=== PATIENT | female | born 1970 | race Two or more races ===

== ENCOUNTER 2024-03-18 22:09 | Emergency (ER) | payer MEDICAID, OTHER ==
[~2024-03-18] VITALS: Ht 167.6 cm; Wt 83.2 kg
[2024-03-18] MEDS ORDERED: FOLIC ACID 1 MG, MAGNESIUM SULF SDV 50% 8 MEQ, MULTIPLE VITAMIN 10 ML, THIAMINE INJ 100... INJ STA (22:14)
[2024-03-18 22:40] VITALS: BP 129/80; PULSE 90; RESP 16; O2SAT 96
[2024-03-18 22:54] LABS: Basophils # (auto) 0 10 ^3/uL (0-0.2); Basophils % (auto) 0.4 % (0.0-2.0); Eosinophils # (auto) 0.2 10 ^3/uL (0-0.8); Eosinophils % (auto) 2.1 % (0.0-7.0); Hematocrit 36.4 % (36.0-46.0); Hemoglobin 12.5 g/dL (12.2-16.2); Lymphocytes # (auto) 3.5 10 ^3/uL (0.4-5.4); Lymphocytes % (auto) 35.1 % (10.0-50.0); Mean Corpuscular Hemoglobin 30.7 pg (28.0-32.0); Mean Corpuscular Hgb Conc. 34.3 g/dL (32.0-36.0); Mean Corpuscular Volume 89.2 fL (80.0-100.0); Monocytes # (auto) 0.6 10 ^3/uL (0-1.3); Neutrophils # (auto) 5.6 10 ^3/uL (1.6-8.6); Neutrophils % (auto) 56.4 % (37.0-80.0); Platelet Count (auto) 332 10^3/uL (140-450); Red Blood Cells 4.08 10^6/uL (4.0-5.20); Red Cell Distribution Width 13.5 % (11.8-14.3); White Blood Cell 9.9 10^3/uL (4.4-10.8)
[2024-03-18 23:21] LABS: CRP High Sensitivity 0.32 mg/dL (<1.0)
[2024-03-19 00:16] LABS: Alanine Aminotransferase 21 U/L (7-40); Albumin 4.7 g/dL (3.2-4.8); Alkaline Phosphatase 61 U/L (46-116); Anion Gap 8 (5-15); BUN/Creatinine Ratio 13.5 (10.0-20.0); Blood Urea Nitrogen 12 mg/dL (9-23); Calcium 9.7 mg/dL (8.7-10.4); Carbon Dioxide 24 mmol/L (20-31); Chloride 106 mmol/L (98-107); Potassium 3.7 mmol/L (3.5-5.1); Sodium 138 mmol/L (136-145)
[2024-03-19 00:17] LABS: Bilirubin, Total 0.6 mg/dL (0.2-1.0); Total Protein 7.4 g/dL (5.7-8.2)
--- NOTE | 2024-03-19 00:22 | DVH ---
CHEST RADIOGRAPH Indication: Rule out pulmonary edema Technique: Single frontal view of the chest was obtained COMPARISON: None FINDINGS: Lines and Tubes: None Lungs: Clear Pleura: No effusion. No pneumothorax. Cardiomediastinal contours: Unremarkable Bones: Unremarkable IMPRESSION: 1. No acute disease.
--- NOTE | 2024-03-19 00:22 | ED.PDOC ---
Musculoskeletal HPI Comments 53 year old female came to emergency room due to lower extremity swelling. Patient does have history of hypertension and diabetes. States for the past few hours she has been having bilateral lower extremity swelling. Patient admits that she has been on a long drive to [place] for over 4 hours 2 days ago. Denies any fever, acute chest pains or shortness of breath. Blood pressure upon arrival was 129/80 mmHg Chief Complaint: Lower Extremity Time Seen by MD: 00:20 Reviewed Notes: Nurses Notes Home Meds Active Scripts Elastic Bandages & Supports (MEDICAL COMPRESSION STOCK) Stocking Mis, UNITS XX ONCE, #2 Prov:SOLOMON BARCENAS MD 03/19/24 Information Source: Patient Mode of Arrival: Ambulatory Location: Bilateral Extremity Location: Leg Timing: Hours Prehospital treatment: None Severity: Moderate Able to Move Extremity: Yes Bear Weight: Limited Pain: Moderate Hand Dominance: Right Mechanism: Spontaneous Circumstances: Spontaneous, Other (Recent travel) Onset of Symptoms: Spontaneous Symptoms: Swelling, Pain Associated signs and symptoms: Leg pain Review of Systems REVIEW OF SYSTEMS: No fever, no chills, or fatigue HEENT: No sore throat, no earache, no congestion, no neck pain. Cardiac: No chest pain. No palpitations. Lungs: No shortness of breath, no cough. GI: No nausea, no vomiting, no diarrhea, no constipation, no abdominal pain : No dysuria, frequency, or urgency. No hematuria. Musculoskeletal: No joint pain , no joint swelling, (+) lower extremity edema. Skin: No rash, no itching. Neuro: No headache, no dizziness, no weakness Vital Signs Vital Signs Date Time Temp Pulse Resp B/P (MAP) Pulse Ox O2 Delivery O2 Flow Rate FiO2 03/18/24 22:40 98.2 90 16 129/80 (96) 96 Physical Exam General: Awake, alert and oriented. No acute distress. Skin: Skin in warm, dry and intact. Appropriate color for ethnicity. Nailbeds pink with no cyanosis. HEENT: The head is normocephalic and atraumatic. Conjunctivae are clear without exudates or hemorrhage. Sclera is non-icteric. EOM are intact. No signs of nystagmus. Eyelids are normal in appearance without swelling or lesions. Oral mucosa is pink and moist Neck: The neck is supple with normal range of motion. No JVD. Cardiac: Heart rate and rhythm are normal. No murmurs, gallops, or rubs are auscultated. Respiratory: No signs of respiratory distress. Lung sounds are clear in all lobes bilaterally without rales, ronchi, or wheezes. Abdominal: Abdomen is soft, non-tender without distention. Bowel sounds are present and normoactive in all four quadrants. Extremities: Bilateral lower extremity 2+ pitting edema Neurological: The patient is awake, alert and oriented to person, place, and time with normal speech. Speech is clear. There is no facial asymmetry. Psychiatric: Appropriate mood and affect. Good judgement and insight. No visual or auditory hallucinations. 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 Was a procedure done?: No Differential Diagnosis EXT Differential Diagnosis: Cellulitis, CHF, Deep Vein Thrombosis, Compartment Syndrome X-Ray, Labs, Meds, VS Vital Signs Date Time Temp Pulse Resp B/P (MAP) Pulse Ox O2 Delivery O2 Flow Rate FiO2 03/18/24 22:40 98.2 90 16 129/80 (96) 96 Lab Test 03/18/24 22:46 Range/Units White Blood Count 9.9 4.4-10.8 10^3/uL Red Blood Count 4.08 4.0-5.20 10^6/uL Hemoglobin 12.5 12.2-16.2 g/dL Hematocrit 36.4 36.0-46.0 % Mean Corpuscular Volume 89.2 80.0-100.0 fL Mean Corpuscular Hemoglobin 30.7 28.0-32.0 pg Mean Corpuscular Hemoglobin Concent 34.3 32.0-36.0 g/dL Red Cell Distribution Width 13.5 11.8-14.3 % Platelet Count 332 140-450 10^3/uL Mean Platelet Volume 7.4 6.9-10.8 fL Neutrophils (%) (Auto) 56.4 37.0-80.0 % Lymphocytes (%) (Auto) 35.1 10.0-50.0 % Monocytes (%) (Auto) 6.0 0.0-12.0 % Eosinophils (%) (Auto) 2.1 0.0-7.0 % Basophils (%) (Auto) 0.4 0.0-2.0 % Neutrophils # (Auto) 5.6 1.6-8.6 10 ^3/uL Lymphocytes # (Auto) 3.5 0.4-5.4 10 ^3/uL Monocytes # (Auto) 0.6 0-1.3 10 ^3/uL Eosinophils # (Auto) 0.2 0-0.8 10 ^3/uL Basophils # (Auto) 0 0-0.2 10 ^3/uL Nucleated Red Blood Cells 0.0 % Sodium Level 138 136-145 mmol/L Potassium Level 3.7 3.5-5.1 mmol/L Chloride Level 106 98-107 mmol/L Carbon Dioxide Level 24 20-31 mmol/L Anion Gap 8 5-15 Blood Urea Nitrogen 12 9-23 mg/dL Creatinine 0.89 0.550-1.02 mg/dL Glomerular Filtration Rate Calc 78 >90 mL/min BUN/Creatinine Ratio 13.5 10.0-20.0 Serum Glucose 128 H 74-106 mg/dL Calcium Level 9.7 8.7-10.4 mg/dL Magnesium Level 2.0 1.6-2.6 mg/dL Total Bilirubin 0.6 0.2-1.0 mg/dL Aspartate Amino Transferase (AST) 11 L 13-40 U/L Alanine Aminotransferase (ALT) 21 7-40 U/L Alkaline Phosphatase 61 46-116 U/L Troponin I High Sensitivity 3 L </=34 ng/L C-Reactive Protein High Sensitivity 0.32 <1.0 mg/dL B-Type Natriuretic Peptide 16.00 0-100 pg/mL Total Protein 7.4 5.7-8.2 g/dL Albumin 4.7 3.2-4.8 g/dL Lipase 41 12-53 U/L Bilateral lower extremity venous duplex Clinical History: No extremity edema Comparison: None Technique: Duplex Doppler evaluation of the deep venous systems of both lower extremities from the common femoral veins to the popliteal veins including color Doppler and spectral/pulsed waveform analysis was performed. Findings: RIGHT SIDE: The common femoral vein demonstrates appropriate compressibility and waveform variability. There is compressibility/patency of the great saphenous vein at the proximal thigh. The femoral vein demonstrates appropriate compressibility and waveform variability. The deep femoral vein demonstrates appropriate compressibility and waveform variability. The popliteal vein demonstrates appropriate compressibility and waveform variability. There is normal compressibility at the tibioperoneal trunk. LEFT SIDE: The common femoral vein demonstrates appropriate compressibility and waveform variability. There is compressibility/patency of the great saphenous vein at the proximal thigh. The femoral vein demonstrates appropriate compressibility and waveform variability. The deep femoral vein demonstrates appropriate compressibility and waveform variability. The popliteal vein demonstrates appropriate compressibility and waveform variability. There is normal compressibility at the tibioperoneal trunk. Impression: 1. No right or left femoropopliteal venous thrombosis. Time of 1ST Reevaluation: 00:15 Reevaluation 1ST: Unchanged Patient Education/Counseling: Diagnosis, Treatment Family Education/Counseling: Diagnosis, Treatment Departure 1 Departure Time of Disposition: 01:01 Impression: Primary Impression: Peripheral edema Disposition: 01 HOME / SELF CARE / HOMELESS Condition: Stable Additional Instructions: ED DISCHARGE INSTRUCTIONS Instructions: Please read all instructions provided in this packet carefully. Although you have been discharged from the Emergency Department, this does not mean that you have a "clean bill of health". No definitive diagnosis for your symptoms has been made today. It is possible that you are in the process of developing a serious illness. This is why you must return to the ED without fail if any new or worsening symptoms (especially if your symptoms include chest pain, trouble breathing, abdominal pain, fever, headache, confusion, trouble seeing, or trouble walking) It is also very important that you see a primary care doctor within the next 3-5 days to follow up. If you are unable to get an appointment, return to the ED for re-evaluation. PERIPHERAL EDEMA EDUCATION Edema is the medical term for swelling caused by a collection of fluid in the spaces that surround the body's tissues and organs. Edema can occur nearly anywhere in the body. Some of the most common sites are: ?The lower legs or hands (also called peripheral edema) ?Abdomen (also called ascites) ?Chest (called pulmonary edema if in the lungs, and pleural effusion if in the space surrounding the lungs) Ascites and peripheral edema can be uncomfortable and can be a sign of a more serious condition. Pulmonary edema, which makes it difficult to breathe and can be life threatening, is a symptom of heart failure and is discussed in more detail separately. (See "Patient education: Heart failure (Beyond the Basics)".) EDEMA SYMPTOMS Symptoms of edema depend upon the cause but may include: ?Swelling or puffiness of the skin, causing it to appear stretched and shiny. This typically is worse in the areas of the body that are closest to the ground (because of gravity). Therefore, edema is generally the worst in the lower legs (called peripheral edema) after walking about, standing, sitting in a chair for a period of time, or at the end of the day. It accumulates in the lower back (called sacral edema) after being in bed for several hours. Pushing on the swollen area for a few seconds will leave a temporary dimple or dent in the skin (figure 1). ?Increased size of the abdomen (with ascites). ?Difficulty breathing (with edema in the chest). CONDITIONS ASSOCIATED WITH EDEMA A number of different problems can cause edema. Chronic venous disease A common cause of edema in the lower legs is chronic venous disease, a condition in which the veins in the legs cannot pump enough blood back up to the heart because the valves in the veins are damaged. This can lead to fluid collecting in the lower legs, thinning of the skin, and, in some cases, development of skin sores (ulcers). (See "Patient education: Lower extremity chronic venous disease (Beyond the Basics)".) Edema can also develop as a result of a blood clot in the deep veins of the lower leg (called deep vein thrombosis [DVT]). In this case, the edema is mostly limited to the feet or ankles and usually affects only one side (the left or right); other conditions that cause edema usually cause swelling of both legs. (See "Patient education: Deep vein thrombosis (DVT) (Beyond the Basics)".) women retain extra fluid. Swelling commonly develops in the hands, feet, and face, especially near the end of a normal . Swelling without other symptoms and findings is common and is not usually a sign that a complication, such as preeclampsia (sometimes called toxemia), has developed. (See "Patient education: Preeclampsia (Beyond the Basics)".) Monthly menstrual periods Edema in women that occurs in a cyclic pattern (usually once per month) can be the result of hormonal changes related to the menstrual cycle. This type of edema is common but does not require treatment, because it resolves on its own. Drugs Edema can be a side effect of a variety of medications, including some oral diabetes medications, high blood pressure medications, non-prescription pain relievers (such as ibuprofen), and estrogens. Kidney disease The edema of kidney disease can cause swelling in the lower legs and around the eyes. (See "Patient education: Chronic kidney disease (Beyond the Basics)".) Heart failure Heart failure, also called congestive heart failure, is due to a weakened heart, which impairs its pumping action. Heart failure can cause swelling in the legs and abdomen, as well as other symptoms. Heart failure can also cause fluid to accumulate in the lungs (pulmonary edema), causing shortness of breath. This can be a very dangerous condition requiring emergency treatment. (See "Patient education: Heart failure (Beyond the Basics)".) Cirrhosis Cirrhosis is scarring of the liver from various causes, which can obstruct blood flow through the liver. People with cirrhosis can develop pronounced swelling in the abdomen (ascites) or in the lower legs (peripheral edema). (See "Patient education: Cirrhosis (Beyond the Basics)".) Travel Sitting for prolonged periods, such as during air travel, can cause swelling in the lower legs. This is common and is not usually a sign of a problem. The table provides tips to minimize leg swelling during travel (table 1). If your leg(s) remain swollen or you develop leg pain hours or days after the flight, contact your healthcare provider. Continued swelling and pain can be signs of a blood clot (DVT). (See "Patient education: Deep vein thrombosis (DVT) (Beyond the Basics)".) Angioedema Reactions to some medications and some inherited disorders can cause fluid to leak out of the blood vessels into surrounding tissues (angioedema). This can cause rapid swelling in the face, lips, tongue, mouth, throat, voice box, limbs, or genitals. Symptoms may include hoarse voice, throat tightness, and difficulty swallowing. Swelling of the throat can interfere with breathing and may be life threatening. Sometimes, this type of swelling occurs in the bowel (the intestinal wall) and can result in abdominal pain. Lymphedema Surgical removal of lymph nodes for the treatment of cancer (most commonly breast cancer) can cause swelling of a limb or limbs with thickening of the skin on the side of the surgery. Swelling of both legs because of lymph problems can also be an inherited condition that becomes apparent in childhood or young adulthood. Lymphedema can also be caused by infection, trauma, or obesity. DIAGNOSING THE CAUSE OF EDEMA If you develop new swelling in one or both of your legs, hands, in your abdomen, or around your eyes, you should call your healthcare provider to determine if you need to be evaluated. (See "Clinical manifestations and evaluation of edema in adults".) If you develop a sudden onset of swelling in the lips, tongue, or mouth, especially if it affects your ability to talk or breathe, you should go to an em ergency department immediately. EDEMA TREATMENT Treatment of edema includes several components: treatment of the underlying ca use (if possible), reducing the amount of salt (sodium) in your diet, and, in many cases, use of a medication called a diuretic to eliminate excess fluid. Using compression stockings and elevating the legs may also be recommended. (See "General principles of the treatment of edema in adults".) Not all types of edema require treatment. Edema related to or menstrual cycles is not usually treated. Peripheral edema and ascites are usually treated slowly to minimize the side effects of rapid fluid loss (such as low blood pressure). Reduce salt (sodium) in your diet Sodium, which is found in table salt and processed foods, can worsen edema. Reducing the amount of salt you consume can help to reduce edema, especially if you also take a diuretic. Guidelines on how to reduce sodium are available separately. (See "Patient education: Low-sodium diet (Beyond the Basics)".) Diuretics Diuretics are a type of medication that causes the kidneys to excrete more water and sodium, which can reduce edema. Diuretics must be used with care because removing too much fluid too quickly can lower the blood pressure, cause lightheadedness or fainting, and impair kidney function. You may have to empty your bladder more frequently after taking a diuretic. However, other side effects are uncommon when diuretics are taken at the recommended dose. Compression stockings Leg edema can be prevented and treated with the use of compression stockings. Stockings are available in several heights, including knee-high, thigh-high, and pantyhose. Knee-high stockings are sufficient for most patients. Some stockings can cause skin irritation or pain, although proper measurement and fitting of the stockings can reduce the risk of discomfort. More detailed compression stocking tips are available in the table (table 2 and figure 2A-C). Effective compression stockings apply the greatest amount of pressure at the a nkle and gradually decrease the pressure up the leg. These stockings are available with varying degrees of compression. ?Stockings with small amounts of compression can be purchased at pharmacies and surgical supply stores without a prescription. ?People with moderate to severe edema, those on their feet a lot, and those with ulcers usually require prescription stockings. A healthcare provider may take measurements for stockings or may write a prescription for stockings and then have a surgical supply or specialty store take the necessary measurements. ?The white "antiembolism" stockings commonly given in the hospital do not apply enough pressure at the ankle and are not adequate treatment for edema. Body positioning Leg, ankle, and foot edema can be improved by elevating the legs above heart level for 30 minutes three or four times per day. Elevating the legs may be sufficient to reduce or eliminate edema for people with mild venous disease, but more severe cases require other measures. In addition, it may not be practical for those who work to elevate their legs several times per day. Author: Rai Mcbride MD Section Recreation Adviser: Santy Mccloud MD [employer] Editors: Milana Haq MD, Elodia Bah MD, MSc All topics are updated as new evidence becomes available and our peer review process is complete. Literature review current through: Nov 2023. This topic last updated: Oct 07, 2022. Please read the Disclaimer at the end of this page. Disclaimer: This generalized information is a limited summary of diagnosis, treatment, and/or medication information. It is not meant to be comprehensive and should be used as a tool to help the user understand and/or assess potential diagnostic and treatment options. It does NOT include all information about conditions, treatments, medications, side effects, or risks that may apply to a specific patient. It is not intended to be medical advice or a substitute for the medical advice, diagnosis, or treatment of a health care provider based on the health care provider's examination and assessment of a patient's specific and unique circumstances. Patients must speak with a health care provider for complete information about their health, medical questions, and treatment options, including any risks or benefits regarding use of medications. This information does not endorse any treatments or medications as safe, effective, or approved for treating a specific patient. [employer] and its affiliates disclaim any warranty or liability relating to this information or the use there of. The use of this information is governed by the Terms of Use, available at https://www.[employer].com/en/know/klvlpxiu-ubudkaxmmxmnx-lowcn. 2023 [employer] and its affiliates and/or licensors. All rights reserved. Topic 4413 Version 25.0 e-Prescriptions Elastic Bandages & Supports (MEDICAL COMPRESSION STOCK) Stocking Mis UNITS XX ONCE, #2 Prov: SOLOMON BARCENAS MD 03/19/24 Comments 53-year-old female who presents to the emergency department with bilateral lower extremity edema. Ultrasound negative for DVT bilaterally, vital signs stable. Patient well-appearing, nontoxic. Advised prompt follow-up with PCP, return to the ED with any new, worsening or concerning symptoms. ----- I reviewed the following notes from the pt's past medical encounters: N/A The following tests were ordered, and results were reviewed by me: (See diagnostic results section) Additional information was gathered from interviewing the following independent historians: (N/A) I reviewed and agreed with the following test results read by other providers: N/A I discussed treatments and results with medical personnel and: N/A Decision regarding hospitalization or escalation of hospital level of care: Risks and benefits of admission for further treatment of patient's condition was considered however due to patient's stable condition patient will be discharged to follow up closely or return to care for worsening of condition or inability to follow up. Critical Care Note Critical Care Time?: No Stability Stability form required: No I personally scribed for SOLOMON BARCENAS MD ([email or web address]) on 03/19/24 at 00:22. Electronically submitted by Ramon Dorado ([email or web address]). I personally scribed for SOLOMON BARCENAS MD ([email or web address]) on 03/19/24 at 00:52. Electronically submitted by Ramon Dorado ([email or web address]). SOLOMON BARCENAS MD 11, 2025 00:22
[2024-03-19 00:27] LABS: Aspartate Aminotransferase 11 U/L (13-40); Glucose 128 mg/dL (74-106)
--- NOTE | 2024-03-19 00:33 | DVH ---
Bilateral lower extremity venous duplex Clinical History: No extremity edema Comparison: None Technique: Duplex Doppler evaluation of the deep venous systems of both lower extremities from the common femora l veins to the popliteal veins including color Doppler and spectral/pulsed waveform analysis was perf ormed. Findings: RIGHT SIDE: The common femoral vein demonstrates appropriate compressibility and waveform variability. There is compressibility/patency of the great saphenous vein at the proximal thigh. The femoral vein demonstrates appropriate compressibility and waveform variability. The deep femoral vein demonstrates appropriate compressibility and waveform variability. The popliteal vein demonstrates appropriate compressibility and waveform variability. There is normal compressibility at the tibioperoneal trunk. LEFT SIDE: The common femoral vein demonstrates appropriate compressibility and waveform variability. There is compressibility/patency of the great saphenous vein at the proximal thigh. The femoral vein demonstrates appropriate compressibility and waveform variability. The deep femoral vein demonstrates appropriate compressibility and waveform variability. The popliteal vein demonstrates appropriate compressibility and waveform variability. There is normal compressibility at the tibioperoneal trunk. Impression: 1. No right or left femoropopliteal venous thrombosis.
[2024-03-19] MEDS ORDERED: ELAS-2314 XX (01:06)
== END 2024-03-19 01:13 | disposition home or self-care (01) ==
LOC: ER 22:09
DX: R60.0 Localized edema (principal); E11.9 Type 2 diabetes mellitus without complications; I10 Essential (primary) hypertension
CPT/HCPCS: 36415; 71045; 80053; 83690; 83735; 83880; 84484; 85025; 86141; 93970